=== PATIENT | male | born 1985 | race Two or more races ===

== ENCOUNTER 2021-09-22 19:12 | Emergency (ER) | payer OTHER ==
[~2021-09-22] VITALS: Ht 172.7 cm; Wt 79.9 kg
[2021-09-22 19:15] VITALS: BP 139/79
[2021-09-22 20:50] LABS: BASOPHILS % 0.3 % (0.0-2.0); EOSINOPHILS % 1.1 % (0.0-5.0); HEMATOCRIT. 42.6 % (42.0-52.0); HEMOGLOBIN. 14.4 g/dL (14.0-18.0); LYMPHOCYTES % 20.5 % (20.0-50.0); MEAN CORPUSCULAR HEMOGLOBIN 30.7 pg (28.0-32.0); MEAN CORPUSCULAR VOLUME 90.4 fL (80.0-94.0); MONOCYTES % 5.5 % (2.0-8.0); NEUTROPHILS % 72.6 % (40.0-76.0); PLATELET 247 x1000/uL (130-400); RED BLOOD CELL COUNT 4.71 mill/uL (4.7-6.1); RED CELL DISTRIBUTION WIDTH 14.7 % (11.6-14.6)
[2021-09-22 20:54] LABS: CHLORIDE 108 mEq/L (98-107)
[2021-09-22] MEDS ORDERED: IOHEXOL-350 100 ML BOTTLE ONE (23:39)
== END 2021-09-22 22:35 | disposition home or self-care (01) ==
LOC: ER 19:12
DX: R07.89 Other chest pain (principal); R06.02 Shortness of breath; F41.9 Anxiety disorder, unspecified; Z86.718 Personal history of other venous thrombosis and embolism; Z90.49 Acquired absence of other specified parts of digestive tract; Z79.01 Long term (current) use of anticoagulants
CPT/HCPCS: 36415; 71275; 80053; 83880; 84484; 85025; 99285; Q9967